=== PATIENT | female | born 1950 ===

== ENCOUNTER 2023-02-22 07:47 | Outpatient (CLI) | payer OTHER | END 2023-02-22 07:48 | disposition home or self-care (01) | LOC: NUCLEAR 07:47 | PROVIDERS: ATTEND Internal Medicine Pulmonary Disease | DX: C50.812 Malignant neoplasm of overlapping sites of left female breast (principal); R91.1 Solitary pulmonary nodule | CPT/HCPCS: 78815; A9552 ==